=== PATIENT | female | born 1940 | race Caucasian/White ===

== ENCOUNTER 2021-02-13 17:03 | Emergency (ER) | payer OTHER ==
[~2021-02-13] VITALS: Ht 154.9 cm; Wt 63.5 kg
[~2021-02-13 17:03] MED LIST: DARVOCET-N 1001 EACH PO
[2021-02-13 19:48] VITALS: BP 144/78
== END 2021-02-13 19:48 | disposition home or self-care (01) ==
LOC: ER 17:03
DX: S90.01XA Contusion of right ankle, initial encounter (principal); Z79.899 Other long term (current) drug therapy; Z91.018 Allergy to other foods; X58.XXXA Exposure to other specified factors, initial encounter; Y93.89 Activity, other specified; Y92.89 Other specified places as the place of occurrence of the external cause; Y99.8 Other external cause status